=== PATIENT | female | born 1990 | race Caucasian/White ===

== ENCOUNTER 2017-07-20 10:54 | Emergency (ER) | payer OTHER ==
[2017-07-20 11:28] VITALS: BP 140/99; PULSE 88; RESP 16; TEMP 97.8; O2SAT 99
== END 2017-07-20 11:42 | disposition home or self-care (01) ==
LOC: ED 10:54
DX: L03.011 Cellulitis of right finger (principal)
CPT/HCPCS: 99282

== ENCOUNTER 2018-08-08 16:49 | Emergency (ER) | payer OTHER ==
[2018-08-08 16:49] VITALS: O2SAT 99
[2018-08-08 17:05] VITALS: PULSE 84; RESP 20; TEMP 98.1
[2018-08-08 17:10] VITALS: BP 137/87
[2018-08-08] MEDS ORDERED: ONDANSETRON 4 MG ODT BU ONE ×2 (17:22→19:11)
[2018-08-08] MEDS ORDERED: ONDANSETRON 4 MG ODT ONE ×2 (17:23→19:13)
[2018-08-08 17:32] LABS: BASOPHILS % (AUTO) 0 % (0-3); EOSINOPHILS % (AUTO) 0 % (0-9); HEMATOCRIT 40 % (35-47); HEMOGLOBIN 13.3 gm/dl (12.0-15.5); MEAN CORPUSCULAR HEMOGLOBIN 28.2 pg (27.0-32.0); MEAN CORPUSCULAR HGB CONC 32.9 gm/dl (32.0-36.0); MEAN CORPUSCULAR VOLUME 86 fL (81-99); MONOCYTES % (AUTO) 4.5 % (0-12); NEUTROPHILS % (AUTO) 65.1 % (37-80)
[2018-08-08] MEDS ORDERED: HYDROCORTISONE SODIUM SUCCIN 100 MG PDS IV ONE (19:20)
== END 2018-08-08 19:18 | disposition home or self-care (01) | DRG 370 ==
LOC: ED 16:49
DX: K22.6 Gastro-esophageal laceration-hemorrhage syndrome (principal); R11.2 Nausea with vomiting, unspecified
CPT/HCPCS: 36415; 85025; 99282; 99283; A9270-GY

== ENCOUNTER 2019-03-03 21:40 | Emergency (ER) | payer SELFPAY ==
[2019-03-03 23:15] VITALS: PULSE 90; RESP 20; TEMP 98; O2SAT 97
== END 2019-03-03 22:52 | disposition home or self-care (01) | DRG 816 ==
LOC: ED 21:40
DX: I88.9 Nonspecific lymphadenitis, unspecified (principal); T14.8XXA Other injury of unspecified body region, initial encounter
CPT/HCPCS: 99282